=== PATIENT | female | born 1980 | race Caucasian/White ===

== ENCOUNTER 2021-05-02 18:00 | Emergency (ER) | payer OTHER ==
[~2021-05-02] VITALS: Ht 165.1 cm; Wt 127.0 kg
[2021-05-02] MEDS ORDERED: NEURONTIN 300M300 M2 PO (18:21)
[2021-05-02] MEDS ORDERED: ZOFRAN ODT4 MG PO (20:38)
[2021-05-02] MEDS ORDERED: FLEXERIL PO (20:38)
[2021-05-02] MEDS ORDERED: VENTOLIN HFA 1818 GM INH (20:38)
[2021-05-02 20:54] VITALS: BP 132/78
--- NOTE | 2021-05-03 07:52 | EKG ---
[place] [address] ELECTROCARDIOGRAM REPORT Name: MARITA UDMONT Room: [facility]#: [id number] Admission: 05/02/21 Attend Phys: Discharge: 05/02/21 Date of : 76 Date of Service: 05/02/211822 Report #: [id number] THIS REPORT FOR: //name// [facility] ED Test Date: 2021-05-02 Test Time: 18:23:31 Pat Name: MARITA DUMONT Department: Room: Gender: F Material Control Supervisor: : 1980 Requested By: Jeferson Haile Order Number: [id number] MD: Bruno Chamberlain Measurements Intervals [place] Rate: 93 P: 60 ME: 154 QRS: 83 QRSD: 85 T: -52 QT: 331 QTc: 412 Interpretive Statements Sinus rhythm Low voltage, precordial leads Borderline repolarization abnormality Baseline wander in lead(s) II,III,aVR,aVF,V6 No previous ECG available for comparison Electronically Signed On 05-03-2021 7:52:08 CDT by Bruno Chamberlain [email or web address] <ELECTRONICALLY SIGNED> By: Bruno Chamberlain MD, FACC 05/03/21 0752 [id number] 182 Bruno Chamberlain MD, FAC /EPI
== END 2021-05-02 20:54 | disposition home or self-care (01) ==
LOC: M.ERS 18:00
DX: U07.1 COVID-19 (principal); Z88.6 Allergy status to analgesic agent; Z91.040 Latex allergy status

== ENCOUNTER 2021-05-06 01:23 | Inpatient (IN) | payer OTHER ==
[~2021-05-06] VITALS: Ht 165.1 cm; Wt 125.8 kg
[~2021-05-06 01:23] MED LIST: FLEXERIL PO; NEURONTIN 300M300 M2 PO; VENTOLIN HFA 1818 GM INH; ZOFRAN ODT4 MG PO
[2021-05-06 01:26] VITALS: BP 151/87
[2021-05-06 02:12] LABS: PO2 62.9 mmHg (75.0-100.0); pH 7.495 (7.340-7.450)
[2021-05-06 02:13] LABS: ABSOLUTE LYMPHOCYTES 0.9 thou/uL (0.8-5.3); ABSOLUTE MONOCYTES 0.2 thou/uL (0.0-1.2); ABSOLUTE NEUTROPHILS 3.7 thou/uL (1.6-8.1); BASOPHILS 0.2 %; HEMATOCRIT 39.7 % (37.0-47.0); HEMOGLOBIN 13.4 gm/dL (12.0-15.0); MCH 27.8 pg (26.0-34.0); MCHC 33.7 g/dL (28.0-37.0); MCV 82.5 fL (80.0-100.0); MONOCYTES 4.7 %; MPV 7.6 fl. (7.2-11.1); NUCLEATED RBCS 0 /100WBC; PLATELET COUNT* 197 thou/uL (150-400); POLYS 76.1 %; RBC 4.81 mil/uL (4.20-5.00); RDW-CV 14.6 % (10.5-14.5); WBC 4.8 thou/uL (4.0-11.0)
[2021-05-06 02:25] LABS: PROTIME 10.6 Seconds (9.20-11.50)
[2021-05-06 02:33] LABS: CALCIUM 7.9 mg/dL (8.5-10.1); CREATININE 0.8 mg/dL (0.6-1.3)
[2021-05-06 02:38] LABS: ALBUMIN 3.1 g/dL (3.4-5.0); TOTAL BILIRUBIN 0.7 mg/dL (<0.1-1.0); TOTAL PROTEIN 7.7 g/dL (6.4-8.2)
[2021-05-06 02:40] LABS: POTASSIUM 2.8 mmol/L (3.5-5.1)
[2021-05-06 08:30] VITALS: BP 131/82
[2021-05-06 12:12] VITALS: BP 137/78
[2021-05-06 14:55] VITALS: BP 152/84
[2021-05-06 15:25] VITALS: BP 129/89
[2021-05-06] MEDS ORDERED: GABAPENTIN600 M1 PO (15:41)
[2021-05-06 22:47] VITALS: BP 139/79
[2021-05-07] VITALS (7 sets, daily range): BP systolic 114–141; BP diastolic 56–85
[2021-05-07 04:20] LABS: HEMATOCRIT 36.3 % (37.0-47.0); HEMOGLOBIN 12.2 gm/dL (12.0-15.0); MCH 27.9 pg (26.0-34.0); MCHC 33.5 g/dL (28.0-37.0); MCV 83.1 fL (80.0-100.0); RBC 4.37 mil/uL (4.20-5.00); RDW-CV 14.9 % (10.5-14.5); WBC 4.4 thou/uL (4.0-11.0)
[2021-05-07 04:48] LABS: ALBUMIN 2.8 g/dL (3.4-5.0); CREATININE 0.8 mg/dL (0.6-1.3); MAGNESIUM 2.4 mg/dL (1.8-2.4); POTASSIUM 3.8 mmol/L (3.5-5.1); TOTAL BILIRUBIN 0.5 mg/dL (<0.1-1.0)
--- NOTE | 2021-05-07 17:00 | EKG ---
[place] [address] ELECTROCARDIOGRAM REPORT Name: TIMMARITA Room: [address] ADM IN .R.#: [id number] Admission: 05/06/21 Attend Phys: Kendal Thurston, Discharge: Date of : 76 Date of Service: 05/06/21 0131 Report #: [id number] THIS REPORT FOR: //name// [facility] ED Test Date: 2021-05-06 Test Time: 01:31:07 Pat Name: MARITA DUMONT Department: Room: [address] Gender: F Computer Systems Support Specialist: JOSELYN : 1980 Requested By: Milton Lott Order Number: [id number] Reading MD: Robert Lei Measurements Intervals [place] Rate: 87 P: 57 NH: 176 QRS: 72 QRSD: 96 T: -77 QT: 352 QTc: 424 Interpretive Statements Sinus rhythm Borderline diffuse repolarization abnormality; ischemia must be considered Compared to ECG 05/02/2021 18:23:31 No significant changes Electronically Signed On 05-07-2021 17:00:26 CDT by Robert Lei [email or web address] <ELECTRONICALLY SIGNED> By: Robert Lei MD, [facility] 05/07/21 1700 0 0 Robert Lei MD, FAC /EPI
[2021-05-08 00:34] VITALS: BP 140/77
[2021-05-08 04:58] VITALS: BP 148/80
[2021-05-08 06:36] LABS: ABSOLUTE LYMPHOCYTES 1.7 thou/uL (0.8-5.3); ABSOLUTE MONOCYTES 0.4 thou/uL (0.0-1.2); ABSOLUTE NEUTROPHILS 4.6 thou/uL (1.6-8.1); BASOPHILS 0.7 %; EOSINOPHILS 0.2 %; HEMOGLOBIN 11.6 gm/dL (12.0-15.0); LYMPHOCYTES 25.3 %; MCH 27.9 pg (26.0-34.0); MCHC 33.2 g/dL (28.0-37.0); MCV 83.9 fL (80.0-100.0); MONOCYTES 6.2 %; MPV 8.8 fl. (7.2-11.1); NUCLEATED RBCS 0 /100WBC; PLATELET COUNT* 167 thou/uL (150-400); POLYS 67.6 %; RBC 4.18 mil/uL (4.20-5.00); RDW-CV 14.9 % (10.5-14.5); WBC 6.8 thou/uL (4.0-11.0)
[2021-05-08 06:53] LABS: ALBUMIN 2.7 g/dL (3.4-5.0); CALCIUM 7.7 mg/dL (8.5-10.1); CREATININE 0.8 mg/dL (0.6-1.3); TOTAL BILIRUBIN 0.6 mg/dL (<0.1-1.0); TOTAL PROTEIN 6.4 g/dL (6.4-8.2)
--- NOTE | 2021-05-08 08:28 | CON ---
[address] [address] CONSULTATION Name: MARITA DUMONT Ewelina Room: [address] IN .#: [id number] Admission: 05/06/21 Attend Phys: Kendal Thurston MD Discharge: Date of : 76 Report #: [id number] THIS REPORT FOR: cc: Surya Whittaker Chad W. DO Pervez, Adeel MD ~ DATE OF CONSULTATION: 05/07/2021 REQUESTING PHYSICIAN: Richar Dodson MD INDICATION FOR CONSULTATION: Acute hypoxemic respiratory failure secondary to COVID-19. HISTORY OF PRESENT ILLNESS: A 40-year-old female. She has a history of morbid obesity, body mass index is 46 and appears to me that she has underlying obstructive sleep apnea, but she has not been previously diagnosed. She does not have any other known past medical history. She has not been vaccinated for COVID-19. According to the ER records, she was diagnosed with COVID-19 10 days ago. There are other family members who have respiratory illness as well. The patient currently is maintaining O2 saturation with 7 liters of oxygen in place. Does have shortness of breath at rest. Not significantly changed compared with yesterday. Has had a cough as well. There is not much sputum. She has had nasal congestion. She has been febrile. She does have swelling of lower extremities as well. REVIEW OF SYSTEMS: For 12 points is negative except as mentioned above. PAST MEDICAL HISTORY: Morbid obesity. SOCIAL HISTORY: Lifetime nonsmoker. No known history of heavy alcohol use or illegal drug use. FAMILY HISTORY: There are family members who have respiratory illness. It is not known to me if other family members have been diagnosed with COVID or not. ALLERGIES: TORADOL, LATEX, AND ZOFRAN. CURRENT MEDICATIONS: List in [facility] reviewed. Home medication list, also in [facility] reviewed. PHYSICAL EXAMINATION: GENERAL: She is alert, awake and oriented, does not appear to be in any distress at this time. VITAL SIGNS: Has a pulse of 84 and a blood pressure of 115/67. She is saturating 92% on 7 liters nasal cannula. Respiratory rate is in the [place] [address] [address] CONSULTATION Name: MARITA DUMONT Room: [address]#: [id number] Admission: 05/06/21 Attend Phys: Kendal Thurston MD Discharge: Date of : 76 Report #: [id number] She has a low-grade fever of 37.3. Body mass index 46. HEENT: Head is normocephalic and atraumatic. Narrow airway. NECK: Does not show raised JVP, asymmetry, mass or lymph nodes. CHEST: Symmetrical expansion on inspection and palpation. On auscultation, breath sounds are bilaterally equal, but decreased. I do not hear any added sounds. HEART: Regular. There is no murmur. ABDOMEN: Soft and nontender. EXTREMITIES: Lower extremities, 1+ edema, no calf tenderness. SKIN: Dry and intact. NEUROLOGIC: Moves all extremities bilaterally equally and spontaneously. No focal deficit identified. LABORATORY DATA: The patient's chest x-ray from admission is reviewed. I repeated a chest x-ray today as well. There are bilateral extensive infiltrates consistent with acute lung injury secondary to COVID-19. There may be some increase in pulmonary vascular congestion as well. A CT chest does not show additional findings except mild lymphadenopathy. Lab work in [facility] reviewed. ASSESSMENT AND PLAN: 1. Acute hypoxemic respiratory failure secondary to COVID-19. It appears likely to me that she has underlying obstructive sleep apnea. Therefore, I strictly recommend avoiding supine sleep and I recommend using a BiPAP while asleep. She is currently on Xopenex. I switch this to p.r.n., but I added Brovana. 2. COVID-19. We will continue with dexamethasone. We will also continue with remdesivir. There is one unit of convalescent plasma ordered, pending administration. I do not feel strongly either way regarding administration of convalescent plasma or holding off. I feel that administering it is a reasonable option. If Actemra becomes available, then I feel that she will be an appropriate candidate for Actemra as well. I am planning to diurese her as below. If with diuresis, O2 saturations do not improve, then I will subsequently consider increasing the Decadron dose. 3. Fluid overload with hypernatremia/hypokalemia on admission. Potassium has been replaced. The patient's sodium is now up to 146. She, however, is on a regular diet, switch this over to a low sodium, carbohydrate-controlled diet. I ordered one dose of Lasix and Aldactone for tomorrow morning. We will subsequently reassess and we will consider more diuresis. Blood pressure has been labile. In case she is hypotensive, then I recommend giving her midodrine and therefore I ordered this p.r.n. 4. Pulmonary infiltrates. I also agree with empirically covering with ceftriaxone and doxycycline, switched to doxycycline to p.o. as I want to limit her saline intake. 5. Elevated D-dimer/edema lower extremities. Recommend venous Dopplers as [place] [address] CONSULTATION Name: MARITA DUMONT Room: [address] [place] ..#: [id number] Admission: 05/06/21 Attend Phys: Kendal Thurston MD Discharge: Date of : 76 Report #: [id number] of chest did not show pulmonary emboli. 6. Hyperglycemia, already on an insulin sliding scale. 7. Deep venous thrombosis prophylaxis. I will increase his Lovenox to intermediate dose. 8. Clostridium difficile prophylaxis, Lactinex. Thanks for this consultation. <ELECTRONICALLY SIGNED> By: Иван Garg MD 05/08/21 0828 1722 2055Adenilson Garg MD /nt
[2021-05-08 09:40] VITALS: BP 126/57
[2021-05-08 12:28] VITALS: BP 138/86
--- NOTE | 2021-05-08 12:37 | 2DMMODE ---
[place] [address] 2 D/M-MODE ECHOCARDIOGRAM Name: TIMMARITA Room: [address] IN [facility]#: [id number] Admission: 05/06/21 Attend Phys: Kendal Thurston, Discharge: Date of : 76 Date of Service: 05/08/21 1237 Report #: [id number] THIS REPORT FOR: cc: Surya Whittaker Chad W. DO Liston, Michael J. MD [facility] ~ APPROVED REPORT Study performed: 05/08/2021 10:30:26 EXAM: Comprehensive 2D, Doppler, and color-flow Echocardiogram Patient Location: In-Patient Room #: 104 Status: routine BSA: 2.27 HR: 87 bpm BP: 148/80 mmHg Rhythm: NSR Other Information Study Quality: Good Indications Dyspnea 2D Dimensions IVSd: 9.54 (7-11mm) LVOT Diam: 23.60 (18-24mm) LVDd: 48.44 mm PWd: 8.83 (7-11mm) Ascending Ao: 30.29 (22-36mm) LVDs: 29.32 (25-40mm) Aortic Root: 33.98 mm Volumes Left Atrial Volume (Systole) LA ESV Index: 18.10 mL/m2 Aortic Valve AoV Peak Tre.: 1.43 m/s AO Peak Gr.: 8.18 mmHg LVOT Max P.81 mmHg AO Mean Gr.: 3.96 mmHg LVOT Mean P.01 mmHg LVOT Max V: 1.10 m/s AO V2 VTI: 26.25 cm LVOT Mean V: 0.64 m/s VETO (VTI): 2.99 cm2 LVOT V1 VTI: 17.96 [place] [address] 2 D/M-MODE ECHOCARDIOGRAM Name: MARITA DUMONT Room: [address] IN [facility]#: [id number] Admission: 05/06/21 Attend Phys: Kendal Thurston, Discharge: Date of : 76 Date of Service: 05/08/21 1237 Report #: [id number] Mitral Valve E/A Ratio: 1.36 MV Decel. Time: 199.28 ms MV E Max Tre.: 0.70 m/s MV PHT: 57.79 ms MVA (PHT): 3.81 cm2 TDI E/Lateral E': 4.67 E/Medial E': 5.38 Medial E' Tre.: 0.13 m/s Lateral E' Tre.: 0.15 m/s Pulmonary Valve PV Peak Tre.: 0.86 m/s PV Peak Gr.: 2.95 mmHg Left Ventricle The left ventricle is normal size. There is normal LV segmental wall motion. There is normal left ventricular wall thickness. Left ventricular systolic function is normal. LVEF is 55-60%. The left ventricular diastolic function is normal. Right Ventricle The right ventricle is normal size. The right ventricular systolic function is normal. Atria The left atrium size is normal. The right atrium size is normal. Aortic Valve The aortic valve is normal in structure. No aortic regurgitation is present. There is no aortic valvular stenosis. Mitral Valve The mitral valve is normal in structure. Trace mitral regurgitation. No evidence of mitral valve stenosis. Tricuspid Valve The tricuspid valve is normal in structure. Trace tricuspid regurgitation. Pulmonic Valve The pulmonary valve is normal in structure. Trace pulmonic regurgitation[place] [address] 2 D/M-MODE ECHOCARDIOGRAM Name: Marcell DUMONTVONNE Ewelina Room: [address] IN [facility]#: [id number] Admission: 05/06/21 Attend Phys: Kendal Thurston, Discharge: Date of : 76 Date of Service: 05/08/21 1237 Report #: [id number] The aortic root is normal in size. IVC is not well visualized. Pericardium There is no pericardial effusion. <Conclusion> The left ventricle is normal size. There is normal left ventricular wall thickness. Left ventricular systolic function is normal. LVEF is 55-60%. The left ventricular diastolic function is normal. There is normal LV segmental wall motion. Trace mitral regurgitation. Trace tricuspid regurgitation. Trace pulmonic regurgitation. IVC is not well visualized. <ELECTRONICALLY SIGNED> By: Bruno Chamberlain MD, FACC 05/08/21 1237 1237 1237 Bruno Chamberlain MD, FACC /INF
[2021-05-08 16:20] VITALS: BP 139/87
[2021-05-08 20:16] VITALS: BP 135/82
[2021-05-09] VITALS (7 sets, daily range): BP systolic 113–152; BP diastolic 63–96
[2021-05-09 04:52] LABS: HEMATOCRIT 35.7 % (37.0-47.0); MCH 27.8 pg (26.0-34.0); MCHC 33.6 g/dL (28.0-37.0); MCV 82.6 fL (80.0-100.0); NUCLEATED RBCS 0 /100WBC; RBC 4.32 mil/uL (4.20-5.00); RDW-CV 14.8 % (10.5-14.5); WBC 6.5 thou/uL (4.0-11.0)
[2021-05-09 04:55] LABS: PLATELET COUNT* 280 thou/uL (150-400)
[2021-05-09 05:21] LABS: CALCIUM 8.3 mg/dL (8.5-10.1); CREATININE 0.8 mg/dL (0.6-1.3); POTASSIUM 3.2 mmol/L (3.5-5.1)
[2021-05-09 06:26] LABS: ABSOLUTE MONOCYTES 0.3 thou/uL (0.0-1.2); ABSOLUTE NEUTROPHILS 4.2 thou/uL (1.6-8.1); ATYPICAL LYMPHS 2 %; ATYPICAL MONONUCLEARS 1 %; METAMYELOCYTES 1 %; PLATELET ESTIMATE ADEQUATE
[2021-05-10 00:33] VITALS: BP 127/87
[2021-05-10 04:18] VITALS: BP 117/60
[2021-05-10 05:23] LABS: ABSOLUTE LYMPHOCYTES 1.6 thou/uL (0.8-5.3); ABSOLUTE MONOCYTES 0.5 thou/uL (0.0-1.2); ABSOLUTE NEUTROPHILS 6.5 thou/uL (1.6-8.1); BASOPHILS 0.2 %; HEMATOCRIT 37.9 % (37.0-47.0); HEMOGLOBIN 12.5 gm/dL (12.0-15.0); LYMPHOCYTES 18.7 %; MCH 27.3 pg (26.0-34.0); MCHC 32.9 g/dL (28.0-37.0); MCV 82.8 fL (80.0-100.0); MONOCYTES 5.7 %; MPV 7.2 fl. (7.2-11.1); NUCLEATED RBCS 0 /100WBC; PLATELET COUNT* 322 thou/uL (150-400); POLYS 75.4 %; RBC 4.58 mil/uL (4.20-5.00); RDW-CV 14.7 % (10.5-14.5); WBC 8.6 thou/uL (4.0-11.0)
[2021-05-10 05:44] LABS: ALBUMIN 3.3 g/dL (3.4-5.0); CALCIUM 8.6 mg/dL (8.5-10.1); CREATININE 0.8 mg/dL (0.6-1.3); POTASSIUM 3.5 mmol/L (3.5-5.1); TOTAL BILIRUBIN 0.7 mg/dL (<0.1-1.0); TOTAL PROTEIN 7.2 g/dL (6.4-8.2)
[2021-05-10 08:00] VITALS: BP 128/84
[2021-05-10] MEDS ORDERED: PROTONIX40 M2 PO (10:03)
[2021-05-10] MEDS ORDERED: DOXYCYCLINE 10100 MG PO (10:03)
[2021-05-10] MEDS ORDERED: DEXAMETHASONE1 MG PO (10:03)
[2021-05-10 12:45] VITALS: BP 129/79
== END 2021-05-10 14:30 | disposition home or self-care (01) | DRG 177 ==
LOC: M.ERS 01:23 → M.TBA-ER 04:29 → M.ORTHSURG 15:15
PROVIDERS: Internal Medicine; Internal Medicine Critical Care Medicine; Personal Emergency Response Attendant; ADMIT Internal Medicine; ATTEND Internal Medicine
PROC: 5A0935A Assistance with Respiratory Ventilation, Less than 24 Consecutive Hours, High Flow/Velocity Cannula (ICD-10-PCS; principal; 2021-05-06)
PROC: XW033E5 Introduction of Remdesivir Anti-infective into Peripheral Vein, Percutaneous Approach, New Technology Group 5 (ICD-10-PCS; 2021-05-06)
PROC: 5A0935A Assistance with Respiratory Ventilation, Less than 24 Consecutive Hours, High Flow/Velocity Cannula (ICD-10-PCS; 2021-05-07)
PROC: 5A09357 Assistance with Respiratory Ventilation, Less than 24 Consecutive Hours, Continuous Positive Airway Pressure (ICD-10-PCS; 2021-05-07)
PROC: 5A0935A Assistance with Respiratory Ventilation, Less than 24 Consecutive Hours, High Flow/Velocity Cannula (ICD-10-PCS; 2021-05-08)
PROC: 5A09357 Assistance with Respiratory Ventilation, Less than 24 Consecutive Hours, Continuous Positive Airway Pressure (ICD-10-PCS; 2021-05-08)
PROC: 5A0935A Assistance with Respiratory Ventilation, Less than 24 Consecutive Hours, High Flow/Velocity Cannula (ICD-10-PCS; 2021-05-09)
PROC: 5A09357 Assistance with Respiratory Ventilation, Less than 24 Consecutive Hours, Continuous Positive Airway Pressure (ICD-10-PCS; 2021-05-09)
PROC: XW13325 Transfusion of Convalescent Plasma (Nonautologous) into Peripheral Vein, Percutaneous Approach, New Technology Group 5 (ICD-10-PCS; 2021-05-09)
PROC: 5A09357 Assistance with Respiratory Ventilation, Less than 24 Consecutive Hours, Continuous Positive Airway Pressure (ICD-10-PCS; 2021-05-10)
DX: U07.1 COVID-19 (principal); J12.82 Pneumonia due to coronavirus disease 2019; J15.6 Pneumonia due to other Gram-negative bacteria; J96.01 Acute respiratory failure with hypoxia; N17.9 Acute kidney failure, unspecified; Z68.42 Body mass index [BMI] 45.0-49.9, adult; E87.0 Hyperosmolality and hypernatremia; E66.9 Obesity, unspecified; E87.70 Fluid overload, unspecified; E87.6 Hypokalemia; R73.9 Hyperglycemia, unspecified; Z79.899 Other long term (current) drug therapy; Z88.8 Allergy status to other drugs, medicaments and biological substances; Z91.040 Latex allergy status